=== PATIENT | male | born 1975 | race Caucasian/White ===

== ENCOUNTER 2020-03-05 08:35 | Observation (INO) | payer OTHER ==
--- NOTE | 2020-03-02 17:24 | Diagnostic Imaging Report ---
EXAMINATION: CHEST 2 VIEWS INDICATION: ^[id number] ^1650 ^PREOP COMPARISON: None FINDINGS: PA and lateral views TUBES and LINES: None. LUNGS: Lungs are well inflated. There is no evidence of pneumonia or pulmonary edema. PLEURA: No pleural effusion or pneumothorax. HEART AND MEDIASTINUM: The cardiomediastinal silhouette is unremarkable. BONES AND SOFT TISSUES: No acute osseous lesion. Soft tissues are unremarkable. UPPER ABDOMEN: No free air under the diaphragm. IMPRESSION: No acute thoracic abnormality. Signed by: Dr. Gorge Foley MD on 03/02/2020 5:21 PM
[2020-03-02 17:32] LABS: BASOPHILS # (AUTO) 0.1 (0.0-0.1); BASOPHILS % 0.8 % (0.0-1.0); EOSINOPHILS # (AUTO) 0.2 (0.0-0.4); EOSINOPHILS % 1.6 % (0.0-6.0); HEMATOCRIT 38.6 % (34.2-44.1); HEMOGLOBIN 13.4 g/dL (12.0-16.0); LYMPHOCYTES # (AUTO) 3.3 (1.0-3.2); MEAN CORPUSCULAR HEMOGLOBIN 29.3 pg (28-32); MEAN CORPUSCULAR HGB CONC 34.7 g/dL (31-35); MEAN CORPUSCULAR VOLUME 84.5 fL (81-99); MONOCYTES # (AUTO) 0.7 (0.2-0.8); MONOCYTES % 7.3 % (4.4-11.3); PLATELET COUNT 464 x10e3/uL (140-360); RED BLOOD COUNT 4.57 x10e6/uL (3.6-5.1); RED CELL DISTRIBUTION WIDTH 12.5 % (11.7-14.4)
[2020-03-02 17:34] LABS: INR 0.88; PROTHROMBIN TIME 12.5 seconds (11.9-14.5)
[2020-03-02 17:35] LABS: ANION GAP 17.2 mmol/L (8-16); BLOOD UREA NITROGEN 8 mg/dL (7-26); BUN/CREATININE RATIO 9 (6-25); CALCIUM 9.7 mg/dL (8.4-10.2); CARBON DIOXIDE 21 mmol/L (22-29); CHLORIDE 95 mmol/L (98-107); CREATININE, SERUM 0.85 mg/dL (0.57-1.11); EST GLOMERULAR FILTRATION RATE > 60 ML/MIN (60-); GLUCOSE 88 mg/dL (74-118); PARTIAL THROMBOPLASTIN TIME 27.3 seconds (23.8-35.5); POTASSIUM 4.2 mmol/L (3.5-5.1); SODIUM 129 mmol/L (136-145)
[~2020-03-05] VITALS: Ht 175.3 cm; Wt 91.2 kg
[~2020-03-05 08:35] MED LIST: ACETAMINOPHEN 1000 MG/100 ML 100 ML IV ONE; CHLORZOXAZONE500 MG PO; IBUPROFEN 800MG/ 200ML 200 ML IV ONE; LIDOCAINE HCL (LTA) 4 ML SOLN ONE; LISINOPRIL10 MG PO
--- OUTSIDE RECORDS SUMMARY | 2020-03-05 08:41 | XMS REPORT ---
Author Author [facility] t Organization [facility] Address [address] [place] [phone] Phone Unavailable Care Team Providers Care Intermediate Accountant Name Role Phone ASHWIN NOYOLA Unavailable Payers Payer Name Policy Type Policy Number Effective Date Expiration Date S ource Problems This patient has no known problems. Allergies, Adverse Reactions, Alerts Allergy Name Allergy Type Status Severity Reaction(s) Onset Date Inacti ve Date Treating Clinician Comments Source No Known Allergies DA Active U 2019-12-13 00:00:00 [facility] Medications This patient has no known medications. Procedures This patient has no known procedures. Results Test Description Test Time Test Comments Results Result Comments Source CHEST 2 VIEWS 2020-03-02 17:20:00 [facility] [address] [address] Patient Name: MARTIN RIOS MR #: [id number] : 1975 Age/Sex: 44/F Req #: [id number] Adm Physician: Ordered by: ASHWIN NOYOLA MD Report #: [id number] Location: OR Room/Bed: Procedure: [id number] DX/CHEST 2 VIEWS Exam Date: 03/02/20 Exam Time: 1649 REPORT STATUS: Signed EXAMINATION: CHEST 2 VIEWS INDICATION: [id number] PREOP COMPARISON: None FINDINGS: PA and lateral views TUBES and LINES: None. LUNGS: Lungs are well inflated. There is no evidence of pneumonia or pulmonary edema. PLEURA: No pleural effusion or pneumothorax. HEART AND MEDIASTINUM: The cardiomediastinal silhouette is unremarkable. BONES AND SOFT TISSUES: No acute osseous lesion. Soft tissues are unremarkable. UPPER ABDOMEN: No free air under the diaphragm. IMPRESSION: No acute thoracic abnormality. Signed by: Dr. Gorge Davis MD on 03/02/2020 5:21 PM Dictated By: GORGE DAVIS MD 20 Transcribed By: KRISTINA on 03/02/201720 COPY TO: ASHWIN NOYOLA MD UR OSMOLALITY RANDOM 2019-12-13 20:22:00 Test Item UR OSMOLALITY RANDOM (test code = OSMOU) 287 mOsm/kg 48-962 N THYROID PROFILE [id number] 19:36:00* Test Item Value Reference Range Interpretation Comments T3 UPTAKE (test code = T3UP) 32.0 % 30.0-40.0 N T4 (THYROXINE) (test code = T4) 10.1 ug/dL 4.5-13.9 N T7 (FREE THYROXINE INDEX) (test code = T7) 3.23 FTI 1.3-5.1 N THYROID STIMULATING HORMONE (test code = TSH) 2.400 uIU/mL 0.36-3.7 4 N TSH REFERENCE RANGES: EUTHYROID: 0.35 - 4.3 mIU/mL HYPO : > 5.5 mIU/mL HYPER : < 0.35 mIU/mL COMPREHENSIVE METABOLIC [id number] 18:43:00* Test Item Value Reference Range Interpretation Comments SODIUM (test code = NA) 125 mmol/L 136-145 L POTASSIUM (test code = K) 4.0 mmol/L 3.5-5.1 N CHLORIDE (test code = CL) 94.0 mmol/L 98-107 L CARBON DIOXIDE (test code = CO2) 23.0 mmol/L 21-32 N ANION GAP (test code = GAP) 12.0 10-20 N GLUCOSE (test code = GLU) 88 mg/dL 74-106 N BLOOD UREA NITROGEN (test code = BUN) 12 mg/dL 7-18 N GLOMERULAR FILTRATION RATE (test code = GFR) > 60 mL/min >=60 Estimated GFR by using Modified MDRD formula.Chronic kidney disease is defined as either kidney damageor GFR <60 mL/min/1.73 m2 for >3 months. CREATININE (test code = CREAT) 0.80 mg/dL 0.7-1.3 N BUN/CREATININE RATIO (test code = BUN/CREA) 15.0 10-20 N TOTAL PROTEIN (test code = PROT) 7.6 gram/dL 6.4-8.2 N ALBUMIN (test code = ALB) 3.6 g/dL 3.4-5.0 N GLOBULIN (test code = GLOB) 4.0 gram/dL 2.7-4.2 N ALBUMIN/GLOBULIN RATIO (test code = A/G) 0.9 0.75-1.50 N CALCIUM (test code = CA) 9.0 mg/dL 8.5-10.1 N BILIRUBIN TOTAL (test code = BILT) 0.20 mg/dL 0.0-1.0 N SGOT/AST (test code = AST) 17 IUnit/L 15-37 N SGPT/ALT (test code = ALT) 30 IUnit/L 12-78 N ALKALINE PHOSPHATASE TOTAL (test code = ALKP) 95 IUnit/L 45-117 N Note change in reference range due to change in reagent. COMPREHENSIVE METABOLIC [id number] 18:32:00* Test Item Value Reference Range Interpretation Comments SODIUM (test code = NA) 125 mmol/L 136-145 L POTASSIUM (test code = K) 4.0 mmol/L 3.5-5.1 N CHLORIDE (test code = CL) 94.0 mmol/L 98-107 L CARBON DIOXIDE (test code = CO2) mmol/L 21-32 ANION GAP (test code = GAP) 10-20 GLUCOSE (test code = GLU) mg/dL 74-106 BLOOD UREA NITROGEN (test code = BUN) mg/dL 7-18 GLOMERULAR FILTRATION RATE (test code = GFR) mL/min >=60 CREATININE (test code = CREAT) mg/dL 0.7-1.3 BUN/CREATININE RATIO (test code = BUN/CREA) 10-20 TOTAL PROTEIN (test code = PROT) gram/dL 6.4-8.2 ALBUMIN (test code = ALB) g/dL 3.4-5.0 GLOBULIN (test code = GLOB) gram/dL 2.7-4.2 ALBUMIN/GLOBULIN RATIO (test code = A/G) 0.75-1.50 CALCIUM (test code = CA) mg/dL 8.5-10.1 BILIRUBIN TOTAL (test code = BILT) mg/dL 0.0-1.0 SGOT/AST (test code = AST) IUnit/L 15-37 SGPT/ALT (test code = ALT) IUnit/L 12-78 ALKALINE PHOSPHATASE TOTAL (test code = ALKP) IUnit/L 45-117 CBC W/AUTO [id number] 18:19:00* Test Item Value Reference Range Interpretation Comments WHITE BLOOD CELL (test code = WBC) 8.1 K/mm3 4.5-12.5 N RED BLOOD CELL (test code = RBC) 4.72 mill/mm3 4.0-5.8 N HEMOGLOBIN (test code = HGB) 14.2 gram/dL 13.0-17.5 N HEMATOCRIT (test code = HCT) 39.5 % 42.0-52.0 L MEAN CELL VOLUME (test code = MCV) 83.7 fL 80-98 N MEAN CELL HGB (test code = MCH) 30.1 picogram 27.0-33.0 N MEAN CELL HGB CONCETRATION (test code = MCHC) 35.9 gram/dL 33.0-36. 0 N RED CELL DISTRIBUTION WIDTH (test code = RDW) 11.9 % 11.6-16. 2 N RED CELL DISTRIBUTION WIDTH SD (test code = RDW-SD) 36.0 fL 37 .0-51.0 L PLATELET COUNT (test code = PLT) 402 K/mm3 150-450 N MEAN PLATELET VOLUME (test code = MPV) 7.9 fL 6.7-11.0 N NEUTROPHIL % (test code = NT%) 46.0 % 39.0-69.0 N IMMATURE GRANULOCYTE % (test code = IG%) 0.5 % 0.0-5.0 N LYMPHOCYTE % (test code = LY%) 40.9 % 25.0-55.0 N MONOCYTE % (test code = MO%) 8.6 % 0.0-10.0 N EOSINOPHIL % (test code = EO%) 2.9 % 0.0-5.0 N BASOPHIL % (test code = BA%) 1.1 % 0.0-1.0 H NUCLEATED RBC % (test code = NRBC%) 0.0 % 0-0 N NEUTROPHIL # (test code = NT#) 3.71 K/mm3 1.8-7.7 N IMMATURE GRANULOCYTE # (test code = IG#) 0.04 x10 3/uL 0-0.03 H LYMPHOCYTE # (test code = LY#) 3.29 K/mm3 1.0-5.0 N MONOCYTE # (test code = MO#) 0.69 K/mm3 0-0.8 N EOSINOPHIL # (test code = EO#) 0.23 K/mm3 0.0-0.5 N BASOPHIL # (test code = BA#) 0.09 K/mm3 0.0-0.2 N NUCLEATED RBC # (test code = NRBC#) 0.00 K/mm3 0.0-0.1 N CBC W/AUTO [id number] 18:18:00* Test Item Value Reference Range Interpretation Comments WHITE BLOOD CELL (test code = WBC) K/mm3 4.5-12.5 RED BLOOD CELL (test code = RBC) mill/mm3 4.0-5.8 HEMOGLOBIN (test code = HGB) 14.2 gram/dL 13.0-17.5 N HEMATOCRIT (test code = HCT) % 42.0-52.0 MEAN CELL VOLUME (test code = MCV) fL 80-98 MEAN CELL HGB (test code = MCH) picogram 27.0-33.0 MEAN CELL HGB CONCETRATION (test code = MCHC) gram/dL 33.0-36. 0 RED CELL DISTRIBUTION WIDTH (test code = RDW) % 11.6-16. 2 RED CELL DISTRIBUTION WIDTH SD (test code = RDW-SD) fL 37 .0-51.0 PLATELET COUNT (test code = PLT) K/mm3 150-450 MEAN PLATELET VOLUME (test code = MPV) fL 6.7-11.0 NEUTROPHIL % (test code = NT%) % 39.0-69.0 IMMATURE GRANULOCYTE % (test code = IG%) % 0.0-5.0 LYMPHOCYTE % (test code = LY%) % 25.0-55.0 MONOCYTE % (test code = MO%) % 0.0-10.0 EOSINOPHIL % (test code = EO%) % 0.0-5.0 BASOPHIL % (test code = BA%) % 0.0-1.0 NEUTROPHIL # (test code = NT#) K/mm3 1.8-7.7 LYMPHOCYTE # (test code = LY#) K/mm3 1.0-5.0 MONOCYTE # (test code = MO#) K/mm3 0-0.8 EOSINOPHIL # (test code = EO#) K/mm3 0.0-0.5 BASOPHIL # (test code = BA#) K/mm3 0.0-0.2
[2020-03-05] MEDS ORDERED: TYLENOL PO (09:01)
[2020-03-05] MEDS ORDERED: CEFAZOLIN SOD 1 GM/NS 50ML 100 ML IV ONE (09:09)
[2020-03-05 10:01] LABS: ANION GAP 14.8 mmol/L (8-16); BLOOD UREA NITROGEN 8 mg/dL (7-26); BUN/CREATININE RATIO 10 (6-25); CALCIUM 9.6 mg/dL (8.4-10.2); CARBON DIOXIDE 23 mmol/L (22-29); CHLORIDE 95 mmol/L (98-107); CREATININE, SERUM 0.79 mg/dL (0.72-1.25); EST GLOMERULAR FILTRATION RATE > 60 ML/MIN (60-); GLUCOSE 95 mg/dL (74-118); POTASSIUM 3.8 mmol/L (3.5-5.1); SODIUM 129 mmol/L (136-145)
[2020-03-05] MEDS ORDERED: THROMBIN FOR SOLN 5,000 UNIT VIAL ONE (10:59)
[2020-03-05] MEDS ORDERED: BACITRACIN 50,000 UNIT VIAL ONE (10:59)
[2020-03-05] MEDS ORDERED: LIDOCAINE 1% W/EPINEPHRINE 20 ML VIAL ONE (10:59)
[2020-03-05] MEDS ORDERED: SUGAMMADEX SODIUM 200 MG/2 ML VIAL IV ONE (12:47)
[2020-03-05] MEDS ORDERED: ONDANSETRON HCL INJ 2MG/ML 2ML 2 MG/ML VIAL IV PRN (13:00)
[2020-03-05] MEDS ORDERED: HYDROMORPHONE 2MG/ML 2 MG/ML ML IV PRN (13:00)
[2020-03-05] MEDS ORDERED: OXYCODONE/ACETAMINOPHEN 5-325 1 EACH TABLET PO PRN (13:00)
[2020-03-05] MEDS ORDERED: CARISOPRODOL 350 MG TAB PO PRN (13:00)
[2020-03-05] MEDS ORDERED: MORPHINE SULFATE 5 MG/ML VIAL IM PRN (13:00)
[2020-03-05] MEDS ORDERED: MAGNESIUM/ALUMINUM/SIMETHICONE 30 ML UDC PO PRN (13:00)
[2020-03-05] MEDS ORDERED: PROMETHAZINE HCL (IM) 25 MG/ML VIAL IM PRN (13:00)
[2020-03-05] MEDS ORDERED: ACETAMINOPHEN 325 MG TAB PO PRN (13:00)
--- NOTE | 2020-03-05 13:36 | Operative Report ---
DATE OF PROCEDURE: 03/05/2020 SURGEON: Clarence Velasquez MD PREOPERATIVE DIAGNOSIS: L2-3 severe spinal stenosis and disk herniation, M51.16, M48.062. POSTOPERATIVE DIAGNOSIS: L2-3 severe spinal stenosis and disk herniation, M51.16, M48.062. PROCEDURES: 1. L2 bilateral decompressive laminectomy and L2-L3 bilateral medial facetectomies, 78173. 2. L3 bilateral partial decompressive laminectomy and left L2-3 microsurgical diskectomy, 50516. ANESTHESIA: General. INDICATIONS: The patient is a 44-year-old man who presents with severe spinal stenosis at L2-3 due to facet and ligamentous hypertrophy and a superimposed broad-based bilateral disk herniation. He was taken to surgery for laminectomy and diskectomy. PROCEDURE IN DETAIL: After induction of general anesthesia, the patient was placed on the operating table in prone position on a Trevor frame. The lumbar region was prepped and draped in a sterile fashion. A preoperative x-ray was obtained and a small midline incision was created. Lumbar fascia was opened along the midline and subperiosteal dissection was carried out to expose the spinous processes and laminae of L2 and L3 and the medial aspect of the L2-L3 facet joints bilaterally. The 2nd x-ray confirmed correct localization. Portions of the spinous processes were resected. A high-speed drill equipped with alecia bur was used to drill the inferior 2/3 of the lamina of L2 and superior 1/3 of the lamina of L3 and the medial rim of the hypertrophic L2-3 facet joints bilaterally. The markedly hypertrophic ligamentum flavum was then carefully resected until the dura and the L3 traversing nerve roots were fully exposed and decompressed. On the left side, the L3 nerve root was then retracted medially. Epidural veins over the disk were bipolar coagulated and divided with micro scissors. The annulus of the disk was incised with a #11 blade and the loose contents of the disk were evacuated with curettes and pituitary rongeurs. Large amount of subligamentous disk herniation was retrieved with a ball probe extending from left to right and removed. By the end of the diskectomy, the ball probe could be passed in the ventral epidural space from left to right without encountering any resistance. Excellent circumferential decompression was thus achieved. The wound was irrigated with bacitracin solution and closed in multiple layers with 0 and 2-0 Vicryl sutures. The skin was closed with 3-0 Monocryl sutures in subcuticular fashion. Steri-Strips and dressing were applied. The patient was awakened, extubated, and taken to postanesthesia care unit in stable condition. No intraoperative complications are encountered. ESTIMATED BLOOD LOSS: 10 mL. Clarence Velasquez MD PP/KATY /[id number]
[2020-03-05] MEDS ORDERED: FENTANYL CITRATE/PF 100MCG/2 ML INJ ONE ×2 (14:45→19:43)
--- OUTSIDE RECORDS SUMMARY | 2020-03-05 14:51 | XMS REPORT ---
Author Author [facility] t Organization [facility] Address [address] [place] [phone] Phone Unavailable Care Team Providers Care Director Of Marketing Operations Name Role Phone ASHWIN NOYOLA Unavailable Payers Payer Name Policy Type Policy Number Effective Date Expiration Date S ource Problems This patient has no known problems. Allergies, Adverse Reactions, Alerts Allergy Name Allergy Type Status Severity Reaction(s) Onset Date Inacti ve Date Treating Clinician Comments Source No Known Allergies DA Active U 2019-12-13 00:00:00 [facility] Medications This patient has no known medications. Procedures This patient has no known procedures. Results Test Description Test Time Test Comments Results Result Comments Source CHEST 2 VIEWS 2020-03-02 17:20:00 [facility] [address] [address] Patient Name: AMRTIN RIOS MR #: [id number] : 1975 Age/Sex: 44/F Req #: [id number] Adm Physician: Ordered by: ASHWIN NOYOLA MD Report #: [id number] Location: OR Room/Bed: Procedure: [id number] DX/CHEST 2 VIEWS Exam Date: 03/02/20 Exam [...] OSMOU) 287 mOsm/kg 48-962 N THYROID PROFILE [id number] 19:36:00* Test Item Value Reference Range Interpretation [...] HYPER : < 0.35 mIU/mL COMPREHENSIVE METABOLIC [id number] 18:43:00* Test Item Value Reference Range Interpretation [...] due to change in reagent. COMPREHENSIVE METABOLIC [id number] 18:32:00* Test Item Value Reference Range Interpretation [...] code = ALKP) IUnit/L 45-117 CBC W/AUTO [id number] 18:19:00* Test Item Value Reference Range Interpretation [...] NRBC#) 0.00 K/mm3 0.0-0.1 N CBC W/AUTO [id number] 18:18:00* Test Item Value Reference Range Interpretation [...]
--- NOTE | 2020-03-05 16:18 | NUR ---
Recvd patient from PACU. AAOx3, Lower lumbar area surgical site dressing is intact, not in any distress, call light in reach, keep monitoring.
[2020-03-05 16:29] VITALS: BP 140/82
[2020-03-05 16:42] VITALS: BP 140/82
[2020-03-05] MEDS: (Chlorzoxazone 500 MG) PO SCH ×2 (17:15→21:00)
[2020-03-05] MEDS ORDERED: ONDANSETRON HCL INJ 2MG/ML 2ML 2 MG/ML VIAL ONE (18:16)
[2020-03-05] MEDS ORDERED: LIDOCAINE HCL 2% JELLY 5 ML TUBE ONE (18:16)
[2020-03-05] MEDS ORDERED: DEXAMETHASONE SOD PHOS INJ 4 MG/ML VIAL ONE (18:16)
[2020-03-05] MEDS ORDERED: ROCURONIUM BROMIDE 10 MG/ML 5ML VIAL IV ONE (18:16)
[2020-03-05] MEDS ORDERED: PROPOFOL IV EMULSION 10 MG/ML 20 ML VIAL ONE (18:16)
[2020-03-05] MEDS ORDERED: GLYCOPYRROLATE INJ 0.2 MG/ML VIAL ONE (18:16)
[2020-03-05] MEDS ORDERED: LIDOCAINE HCL 2% LOCAL INJ 5 ML SDV VIAL INJ ONE (18:16)
[2020-03-05] MEDS ORDERED: NEOSTIGMINE 1 MG/ML 10ML VIAL ONE (18:16)
[2020-03-05] MEDS ORDERED: SEVOFLURANE INHAL SOLN 250 ML PEN BTL ONE (18:16)
--- NOTE | 2020-03-05 19:10 | NUR ---
Bedside shift report received from morning nurse. Pt alert and oriented to name right side lying in bed. Call light within reach. Bed low and locked.
[2020-03-05] MEDS ORDERED: MIDAZOLAM HCL 2 MG/2 ML VIAL ONE (19:43)
[2020-03-05] MEDS ORDERED: MORPHINE SULFATE INJ 10 MG/ML ONE (19:43)
[2020-03-05 20:00] VITALS: BP 147/84
[2020-03-05] MEDS: CEFAZOLIN SOD 1 GM/NS 50ML 50 ML IV SCH (20:00)
[2020-03-05 20:39] VITALS: BP 147/84
[2020-03-05] MEDS ORDERED: ZOLPIDEM TARTRATE 5 MG TAB PO PRN (21:00)
[2020-03-05] MEDS: LACTATED RINGER'S 1,000 ML IV SCH (22:45)
[2020-03-06] VITALS: BP 142/79
[2020-03-06 04:00] VITALS: BP 155/77
[2020-03-06] MEDS: CEFAZOLIN SOD 1 GM/NS 50ML 50 ML IV SCH (04:00)
[2020-03-06] MEDS: LACTATED RINGER'S 1,000 ML IV SCH (06:45)
--- NOTE | 2020-03-06 07:00 | NUR ---
RECEIVED BEDSIDE SHIFT REPORT FROM OFF GOING NURSE. PATIENT IS RESTING IN BED. NO ACUTE DISTRESS NOTED. CALL LIGHT WITHIN REACH. BED IN THE LOWEST POSITION.
--- NOTE | 2020-03-06 07:50 | NUR ---
REMOVED WOUND DRESSING AT THIS TIME. PATIENT TOLERATED WELL.
[2020-03-06 07:57] VITALS: BP 138/70
[2020-03-06] MEDS ORDERED: NORCO 7.5-3251 EACH PO (08:00)
[2020-03-06] MEDS: (Chlorzoxazone 500 MG) PO SCH (08:20)
[2020-03-06 08:55] VITALS: BP 138/70
[2020-03-06] MEDS ORDERED: LISINOPRIL 10 MG TAB PO SCH (09:00)
--- NOTE | 2020-03-06 10:24 | NUR ---
DC ORDER IN FOR PATIENT FROM DR. NOYOLA PUT IN YESTERDAY AFTER SURGERY. PATIENT IS IN STABLE CONDITION. IV LINE TO LEFT FOREARM DISCONTINUED WITH INTACT, PRESSURE APPLIED TO SITE, NO BLEEDING NOTED. DISCHARGE TEACHING PROVIDED TO PATIENT, HER VERBALIZED UNDERSTANDING. DISCHARGE FOLDER WITH PAPERWORK AND PRESCRIPTIONS ON HAND. ALL PERSONAL ITEMS ON HAND. PATIENT ACCOMPANIED TO PRIVATE AUTO VIA WHEELCHAIR BY STAFF.
== END 2020-03-06 10:24 | disposition home or self-care (01) ==
LOC: EDSEX 08:35 → OR 08:35 → PACU V 12:59 → MED/SURG3 16:12
PROVIDERS: ADMIT Neurological Surgery; ATTEND Neurological Surgery
DX: M51.16 Intervertebral disc disorders with radiculopathy, lumbar region (principal); M48.062 Spinal stenosis, lumbar region with neurogenic claudication; Z11.59 Encounter for screening for other viral diseases; Z01.810 Encounter for preprocedural cardiovascular examination; Z01.818 Encounter for other preprocedural examination
CPT/HCPCS: 36415 ×2; 63047; 63048; 71046; 72020; 80048 ×2; 85025; 85610; 85730; 86850 ×2; 86900 ×2; 87635; 88304; 88311; 93005; 96361 ×2; G0378 ×2; J0131; J0690 ×2; J1100; J2001 ×2; J2250; J2270; J2405; J2704; J2710; J3010; J7121 ×2; 96360